=== PATIENT | female | born 1980 | race Two or more races ===

== ENCOUNTER 2018-06-30 11:38 | Emergency (ER) | payer OTHER ==
[~2018-06-30] VITALS: Ht 154.9 cm; Wt 70.3 kg
[2018-06-30 12:27] LABS: MEAN CORPUSCULAR HEMOGLOBIN 24.2 pg (27.0-34.8); MEAN CORPUSCULAR HGB CONC 31.5 g/dL (32.4-35.8); MEAN CORPUSCULAR VOLUME 76.8 fL (80-100); MEAN PLATELET VOLUME 7.4 fL (7.4-10.4); PLATELET COUNT 537 x10^3/uL (130-400); RED BLOOD COUNT 4.36 x10^6/uL (3.82-5.3); RED CELL DISTRIBUTION WIDTH 32.8 % (9.6-15.2)
[2018-06-30 12:30] LABS: ALANINE AMINOTRANSFERASE 26 U/L (12-78); ALBUMIN 3.7 g/dL (3.4-5.0); ANION GAP 6 mmol/L (5-15); CALCIUM 8.3 mg/dL (8.5-10.1); CHLORIDE 108 mmol/L (98-107); CREATININE 0.65 mg/dL (0.55-1.02)
[2018-06-30 12:32] LABS: ALKALINE PHOSPHATASE 73 U/L (45-117); BILIRUBIN,TOTAL 0.4 mg/dL (0.2-1.0); TOTAL PROTEIN 7.5 g/dL (6.4-8.2)
[2018-06-30 13:01] LABS: BASOPHILS # (AUTO) 0.02 x10^3/uL (0-0.1); BASOPHILS % (AUTO) 0 % (0-1); EOSINOPHILS # (AUTO) 0.08 x10^3/uL (0-0.4); EOSINOPHILS % (AUTO) 1 % (1-7); LYMPHOCYTES # (AUTO) 1.28 x10^3/uL (1-3.4); LYMPHOCYTES % (AUTO) 14 % (22-44); MD SCAN; MONOCYTES # (AUTO) 0.28 x10^3/uL (0.2-0.8); MONOCYTES % (AUTO) 3 % (2-9); NEUTROPHILS # (AUTO) 7.66 x10^3/uL (1.8-6.8); NEUTROPHILS % (AUTO) 82 % (42-75)
--- NOTE | 2018-06-30 13:03 | NUR ---
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
[2018-06-30] MEDS ORDERED: SODIUM CHLORIDE FLUSH 10ML SYR IVF ONE (13:30)
[2018-06-30] MEDS ORDERED: MORPHINE SULFATE 4 MG/ML, 1ML IVPush PRN (13:30)
[2018-06-30] MEDS ORDERED: ONDANSETRON 2MG/ML, 2ML IVPush ONE (13:30)
--- NOTE | 2018-06-30 13:35 | NUR ---
URINE COLLECTED/SENT TO LAB. PT PLACED ON BP CUFF, PULSE OX. VSS/UPDATED IN COMPUTER. PT AND FAMILY UPDATED ON POC. CALL LIGHT WITHIN REACH, WARM BLANKET PROVIDED.
[2018-06-30] MEDS ORDERED: MORPHINE SULFATE 4 MG/ML, 1ML ONE (13:55)
[2018-06-30] MEDS ORDERED: ONDANSETRON 2MG/ML, 2ML ONE (13:55)
[2018-06-30 13:58] LABS: HCG UR SG 1.015 (1.003-1.030); MICROSCOPIC AUTO
--- NOTE | 2018-06-30 14:00 | NUR ---
IV PLACED, MEDS GIVEN PER ERP ORDER. CALL LIGHT WITHIN REACH, AT BS.
[2018-06-30 14:12] LABS: CULTURE INDICATED? NO
--- NOTE | 2018-06-30 14:27 | NUR ---
UA RESULTS BACK, PT FOR RECHECK.
[2018-06-30 14:29] VITALS: BP 131/67
== END 2018-06-30 14:54 | disposition home or self-care (01) ==
LOC: ED 14:06
DX: D25.0 Submucous leiomyoma of uterus (principal); N93.8 Other specified abnormal uterine and vaginal bleeding
CPT/HCPCS: 36415; 76830; 80053; 81001; 81025; 84703; 85025; 96374; 96375; 99284; J2405